=== PATIENT | female | born 2000 | race Caucasian/White ===

== ENCOUNTER → 2023-05-15 | Outpatient (CLI) | payer OTHER, SELFPAY ==
[2023-05-15 12:15] LABS: Absolute Lymphocyte Count 1.58 X10^3/uL (0.83-4.51); Absolute Neutrophil Count 3.8 X10^3/uL (2.0-7.7); Basophil# 0.04 X10^3/uL; Basophil% 0.7 % (0-1); Eosinophil# 0.07 X10^3/uL; Eosinophils% 1.2 % (0-5); Hematocrit 37.7 % (37-47); Hemoglobin 11.7 g/dL (12.0-15.0); Lymphocyte # 1.58 X10^3/ul (0.83-4.51); Lymphocyte % 26.9 % (19-41); Mean Corpuscular Hgb 26.1 pg (27.0-32.0); Mean Corpuscular Volume 84.2 fL (81-99); Monocyte# 0.34 X10^3/uL; Monocyte% 5.8 % (0-10); NRBC Flagged by Analyzer 0 % (0-5); Neutrophil # 3.83 X10^3/uL (2.7-7.7); Neutrophil % 65.1 % (47-70); Platelet Count 313 K/mm3 (150-450); Red Blood Count 4.48 M/mm3 (4.2-5.4); White Blood Count 5.9 K/mm3 (4.4-11.0)
--- OUTSIDE RECORDS SUMMARY | 2023-05-15 12:20 | XMS RPT_ITS | CCD ---
Author Name Unknown Address [address] [place] [address] Organization [facility] Care Team Providers Care Palliative Medicine Physician Name Role Phone Provider, Unspecified Primary Care Provider Unav ailable Problems Problem Classification Problem Date Documented Da te Episodic/Chronic Other injuries and conditions due to external causes (1 source) Injury of foot; Translations: [Foot injury] Episodic Results Test Name Value Interpretation Reference Range Facil ity Encounters Encounter Date Encounter Type Care Provider Facility Start: 06-22-2019 End: 06-22-2019 Subsequent hospital visit by physician Bisi Perez Work Phone: [facility] Imaging Procedures Date Procedure Procedure Detail Performing Clinician Start: 06-22-2019 Radex foot complete minimum 3 views Bisi Perez Work Phone: Plan of Treatment Date Care Activity Detail Author Start: 12-13-2018 Influenza vaccination given INFLUENZA VACCINE (#1) [facility] Start: 02-21-2018 ANNUAL WELLNESS VISIT ANNUAL WELLNESS VISIT [facility] Start: 2016 CHLAMYDIA SCREENING CHLAMYDIA SCREENING [facility] Start: 2012 Adult depression screening assessment DEPRESSION SCREENING [facility] Start: 02-21-2011 Vaccination for human papillomavirus HPV VACCINES (GARDASIL) (1 - Female 2-dose series) [facility] Payers Date Payer Category Payer Unknown [employer] xxxxxxxxxxxxxx 2019-Present xxxxxxxxxxxxxx [id number] Private Health Insurance [facility] xxxxxxxxx Effective for all dates [phone] PPO xxxxxxxxx 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 This clinical summary was aggregated from multiple sources. Caution should be exercised in using it in the provision of clinical care. This summary normalizes information from multiple sources, and as a consequence, information in this document may materially change the coding, format and clinical context of patient data. In addition, data may be omitted in some cases. CLINICAL DECISIONS SHOULD BE BASED ON THE PRIMARY CLINICAL RECORDS. [employer] provides no warranty or guarantee of the accuracy or completeness of information in this document.
[2023-05-15 12:22] LABS: AST(SGOT) 19 U/L (15-37); Alanine Aminotransfer ALT/SGPT 21 U/L (13-56); Anion Gap 6 (5-15); BUN 14 mg/dL (7-18); Calcium,Total 8.8 mg/dL (8.5-10.1); Chloride 109 mmol/L (98-107); Creatinine, Serum 0.88 mg/dL (0.55-1.02); EST Glomerular Filtration Rate 85 mL/min (>60); Est Glom Filt Rate - Afr Amer 103 mL/min (>60); Glucose 85 mg/dL (74-106); Potassium 3.8 mmol/L (3.5-5.1); Sodium Level 138 mmol/L (136-145)
[2023-05-15 13:08] LABS: Hepatitis B Surface Antibody Non-Reactive; Hepatitis B Surface Antigen Non-Reactive (Nonreactive); Hepatitis C Antibody Non-Reactive (Nonreactive)
[2023-05-19 12:08] LABS: Hepatitis B Core Ab Total Negative (Negative); QNTFERON TB Mitogen Value > 10.00 IU/mL (.); QNTFERON TB Nil Value 0 IU/mL (.); QNTFERON TB1+ Ag Value 0.01 IU/mL (.); QNTFERON TB2+ Ag Value 0.01 IU/mL (.); QNTIFERON TB Positive Criteria Negative (Negative)
== END | disposition home or self-care (01) ==
LOC: MTLAB 09:54
PROVIDERS: Referring Provider Physician Assistant Medical; Visit Provider Physician Assistant Medical
DX: L40.0 Psoriasis vulgaris (principal); Z79.620 Long term (current) use of immunosuppressive biologic
CPT/HCPCS: 36415; 80048; 84450; 84460; 85025; 86480; 86704; 86706; 86803; 87340

== ENCOUNTER → 2024-02-11 | Outpatient (CLI) | payer OTHER, SELFPAY | END | disposition home or self-care (01) | LOC: MTLAB 08:17 | PROVIDERS: Referring Provider Physician Assistant Medical; Visit Provider Physician Assistant Medical | DX: L40.0 Psoriasis vulgaris (principal); Z79.899 Other long term (current) drug therapy | CPT/HCPCS: 36415; 86480 ==

== ENCOUNTER → 2025-02-14 | Outpatient (CLI) | payer OTHER, SELFPAY ==
[2025-02-17 04:07] LABS: QNTFERON TB Mitogen Value > 10.00 IU/mL (.); QNTFERON TB Nil Value 0.01 IU/mL (.); QNTFERON TB1+ Ag Value 0.02 IU/mL (.); QNTFERON TB2+ Ag Value 0.02 IU/mL (.); QNTIFERON TB Positive Criteria Negative (Negative)
== END | disposition home or self-care (01) ==
LOC: MTLAB 08:21
PROVIDERS: Referring Provider Physician Assistant Medical; Visit Provider Physician Assistant Medical
DX: L40.0 Psoriasis vulgaris (principal)
CPT/HCPCS: 36415; 86480